=== PATIENT | female | born 1985 | race Caucasian/White ===

== ENCOUNTER 2017-04-06 13:44 | Emergency (ER) | payer SELFPAY ==
[~2017-04-06] VITALS: Ht 165.1 cm; Wt 70.0 kg
[2017-04-06 14:15] VITALS: BP 113/75
== END 2017-04-06 16:08 | disposition home or self-care (01) ==
LOC: ED 13:44
DX: M54.12 Radiculopathy, cervical region (principal)

== ENCOUNTER 2017-04-09 22:12 | Emergency (ER) | payer SELFPAY ==
[2017-04-10 01:26] VITALS: BP 105/65
== END 2017-04-10 01:26 | disposition home or self-care (01) ==
LOC: ED 22:12
DX: M54.12 Radiculopathy, cervical region (principal); Z79.899 Other long term (current) drug therapy
CPT/HCPCS: J1885; J2270; Q0162

== ENCOUNTER 2017-05-05 19:01 | Emergency (ER) | payer BC ==
[~2017-05-05] VITALS: Ht 165.1 cm; Wt 72.1 kg
[2017-05-05 21:56] LABS: UA SPECIFIC GRAVITY <=1.005 (1.005-1.035); microscopic required? YES; urine erythrocyte NEGATIVE (NEGATIVE)
[2017-05-05 21:58] LABS: BASOPHIL % 0.2 % (0-2); PLATELET COUNT 197 x10^3mcL (130-400)
[2017-05-05 22:04] LABS: CALCIUM 8.1 mg/dL (8.5-10.1); CARBON DIOXIDE 23.6 mmol/L (21-32); CHLORIDE SERUM 104 mmol/L (98-107); CREATININE SERUM 0.9 mg/dL (0.6-1.0); GFR1 > 60 mL/min; GLUCOSE SERUM 92 mg/dL (74-106); POTASSIUM SERUM 3.7 mmol/L (3.5-5.1); SODIUM SERUM 137 mmol/L (136-145)
[2017-05-05 22:08] LABS: ALBUMIN 3.6 g/dL (3.4-5.0); ALKALINE PHOSPHATASE 37 U/L (46-116); ALT/SGPT 20 U/L (14-59); AMYLASE 56 U/L (25-115); AST/SGOT 14 U/L (15-37); BILIRUBIN TOTAL 0.28 mg/dL (0.20-1.00); LIPASE 311 IU/L (73-393); TOTAL PROTEIN, SERUM 7.3 g/dL (6.4-8.2)
[2017-05-05 23:21] VITALS: BP 109/66
== END 2017-05-05 23:21 | disposition home or self-care (01) ==
LOC: ED 19:01
PROVIDERS: Emergency Medicine
DX: M54.9 Dorsalgia, unspecified (principal); R30.0 Dysuria
CPT/HCPCS: 36415; 87491; 87591; J0696

== ENCOUNTER 2017-09-29 23:36 | Emergency (ER) | payer OTHER ==
[2017-09-30 01:45] LABS: microscopic required? NO
[2017-09-30 01:58] LABS: UA SPECIFIC GRAVITY >=1.030 (1.005-1.035); urine erythrocyte NEGATIVE (NEGATIVE)
[2017-09-30 03:47] VITALS: BP 122/74
== END 2017-09-30 03:47 | disposition home or self-care (01) ==
LOC: ED 23:36
PROVIDERS: Emergency Medicine
DX: M54.5 Low back pain (principal)
CPT/HCPCS: J1100; J1885